=== PATIENT | female | born 1985 | race Caucasian/White ===

== ENCOUNTER 2017-10-13 19:11 | Emergency (ER) | payer OTHER ==
[~2017-10-13] VITALS: Ht 162.6 cm; Wt 63.3 kg
[2017-10-13 20:13] LABS: HEMATOCRIT 38.4 % (36.0-46.0); HEMOGLOBIN 13.2 G/DL (11.9-15.5); MCH 28.9 PG (29.0-34.0); MCHC 34.4 G/DL (30.0-36.0); MCV 84.2 FL (83-99); PLATELET COUNT 297 K/uL (156-360); RBC DIS.WIDTH-CV 12.9 % (11.8-14.6); RBC DIS.WIDTH-SD 39.8 % (39-53); RED BLOOD COUNT 4.56 M/uL (3.80-5.20); WHITE BLOOD COUNT 8.6 K/uL (4.1-10.2)
[2017-10-13 20:21] LABS: CHLORIDE 102 mEq/L (99-109); POTASSIUM 3.3 mEq/L (3.7-5.4); SODIUM 138 mEq/L (136-147)
[2017-10-13 20:22] LABS: GLUCOSE 119 mg/dL (70-99)
[2017-10-13 20:26] LABS: CREATININE 0.8 mg/dL (0.6-1.3)
[2017-10-13 20:27] LABS: UREA NITROGEN (BUN) 13 mg/dL (9-23)
[2017-10-13 20:30] LABS: GFR ESTIMATE (CALCULATED) > 59 mL/min/
[2017-10-13 20:34] LABS: APPEARANCE CLEAR ((CLEAR)); BILIRUBIN NEGATIVE; BLOOD NEGATIVE; COLOR STRAW ((YELLOW)); GLUCOSE (STRIP) NEGATIVE; KETONES 5; LEUKOCYTES SMALL; NITRITE NEGATIVE; PROTEIN (STRIP) NEGATIVE; SPECIFIC GRAVITY 1.008 (1.000-1.030); UROBILINOGEN 0.2 MG/DL (0.2-1.0)
[2017-10-13 20:35] LABS: QUANTITATIVE HCG < 4.0 MIU/ML
[2017-10-13 20:37] LABS: BACTERIA RARE /HPF; EPITHELIAL CELLS 1+ /HPF; MUCUS TRACE /LPF; RED BLOOD CELLS 0-5 /HPF (0-5); UCUL ADDED? NO; WHITE BLOOD CELLS 0-5 /HPF (0-5)
[2017-10-13 21:50] VITALS: BP 117/86
== END 2017-10-13 21:52 | disposition home or self-care (01) ==
LOC: EME 19:11 → EXP 19:11
PROVIDERS: Physician Assistant
DX: R42 Dizziness and giddiness (principal); R25.1 Tremor, unspecified; R68.83 Chills (without fever); R63.8 Other symptoms and signs concerning food and fluid intake; T43.295A Adverse effect of other antidepressants, initial encounter
CPT/HCPCS: 80048; 81003; 84702; 85027; 93005; 99281; 99284; J1200; J7030